=== PATIENT | female | born 1995 | race African-American/Black ===

== ENCOUNTER 2018-01-26 10:56 | Emergency (ER) | payer OTHER ==
[2018-01-26 10:59] VITALS: BP 134/92; PULSE 101; TEMP 98.7; BMI 29.2
[2018-01-26] MEDS ORDERED: KETOROLAC TROMETHAMINE 60 MG/2 ML VIAL ONE (11:41)
[2018-01-26] MEDS ORDERED: KETOROLAC TROMETHAMINE 60 MG/2 ML VIAL IM ONE (11:47)
--- NOTE | 2018-01-26 11:57 | PDOC ---
History of Present Illness - General Chief Complaint: Ear Problem Stated Complaint: EARACHE Time Seen by Provider: 01/26/18 11:34 History Source: Patient Exam Limitations: No Limitations - History of Present Illness Initial Comments: 01/26/18 11:48 Acute onset of severe right ear pain that started this morning at 1 AM. States has been suffering with a mild cold throughout the week and her young daughter was diagnosed with last week. Has been using ibuprofen with minimal resolved. Patient is now here tearful with pain to her right ear and runny nose. Timing/Duration: 24 hours Severity: moderate Associated Symptoms: reports: fever/chills, malaise Past History - Travel Traveled outside of the country in the last 30 days: No - Past Medical History Allergies/Adverse Reactions: Allergies Allergy/AdvReac Type Severity Reaction Status Date / Time No Known Allergies Allergy Verified 01/26/18 10:59 Home Medications: Ambulatory Orders Azithromycin [Zithromax -] 250 mg PO UTDICT #6 tab 01/26/18 COPD: No - Suicide/Smoking/Psychosocial Hx Smoking History: Never smoked Review of Systems - Review of Systems Able to Perform ROS?: Yes Is the patient limited Malay proficient: Yes Constitutional: Yes: Symptoms Reported, See HPI, Fever, Malaise HEENTM: Yes: See HPI, Ear Pain, Nose Congestion. No: Symptoms Reported Respiratory: Yes: Symptoms reported, See HPI *Physical Exam - Vital Signs Last Vital Signs Temp Pulse Resp BP Pulse Ox 98.7 F 101 H 20 134/92 99 01/26/18 10:57 01/26/18 10:57 01/26/18 10:57 01/26/18 10:57 01/26/18 10:57 - Physical Exam General Appearance: Yes: Appropriately Dressed HEENT: positive: Nasal Congestion, Rhinorrhea, Sinus Tenderness, TM Bulging, TM Dull (right TM with severe bulging unable to visualize any landmarks), TM Erythema. negative: TMs Normal Neck: positive: Supple, Lymphadenopathy (R), Lymphadenopathy (L) Respiratory/Chest: positive: Lungs Clear Moderate Sedation - Procedure Monitoring Vital Signs: Procedure Monitoring Vital Signs Temperature 98.7 F 01/26/18 10:57 Pulse Rate 101 H 01/26/18 10:57 Respiratory Rate 20 01/26/18 10:57 Blood Pressure 134/92 01/26/18 10:57 O2 Sat by Pulse Oximetry (%) 99 01/26/18 10:57 *DC/Admit/Observation/Transfer Diagnosis at time of Disposition: Otitis media Qualifiers: Otitis media type: suppurative Chronicity: acute Laterality: right Recurrence: non-recurrent Spontaneous tympanic membrane rupture: without spontaneous rupture Qualified Code(s): H66.001 - Acute suppurative otitis media without spontaneous rupture of ear drum, right ear - Discharge Dispostion Disposition: HOME Condition at time of disposition: Stable Decision to Admit order: No - Referrals - Patient Instructions Printed Discharge Instructions: Middle Ear Infection Additional Instructions: Rest, lots of fluids; water, teas, soups Saltwater girls and steamy showers Hot wet soaks to ear/hot packs may help relieve some pain Continue ibuprofen or Tylenol for pain and fevers Complete all antibiotics as directed followup with private physician / ENT doctor in 2-3 days - Post Discharge Activity
== END 2018-01-26 12:26 | disposition home or self-care (01) ==
LOC: JERFT 10:56
PROC: 3E0233Z Introduction of Anti-inflammatory into Muscle, Percutaneous Approach (ICD-10-PCS; principal; 2018-01-26)
DX: H66.001 Acute suppurative otitis media without spontaneous rupture of ear drum, right ear (principal)
CPT/HCPCS: 99281-25

== ENCOUNTER 2018-06-10 19:03 | Emergency (ER) | payer OTHER ==
[2018-06-10 19:10] VITALS: BP 124/80; PULSE 106; TEMP 98.4; BMI 27.4
[2018-06-10] MEDS ORDERED: DEXAMETHASONE LIQUID 0.5 MG/5 ML 240 ML BULK BOTTLE PO ONE (19:58)
[2018-06-10] MEDS ORDERED: PENICILLIN G BENZATHINE 1,200,000 UNIT/2 ML PFS IM ONE (19:58)
[2018-06-10] MEDS ORDERED: DEXAMETHASONE SOD PHOSPHATE 10 MG/1 ML VIAL ONE (20:05)
[2018-06-10] MEDS ORDERED: PENICILLIN G BENZATHINE 2,400,000 UNIT/4 ML PFS ONE (20:06)
--- NOTE | 2018-06-10 20:07 | PDOC ---
History of Present Illness - General Chief Complaint: Sore Throat Stated Complaint: SORE THROAT Time Seen by Provider: 06/10/18 19:55 - History of Present Illness Initial Comments: 06/10/18 20:03 23-year-old female without comorbidities presents for evaluation of sore throat and fever 2 days. Past History - Past Medical History Allergies/Adverse Reactions: Allergies Allergy/AdvReac Type Severity Reaction Status Date / Time No Known Allergies Allergy Verified 06/10/18 19:11 Home Medications: Ambulatory Orders Azithromycin [Zithromax -] 250 mg PO UTDICT #6 tab 01/26/18 COPD: No - Suicide/Smoking/Psychosocial Hx Smoking History: Never smoked Review of Systems - Review of Systems Constitutional: Yes: Fever HEENTM: Yes: Throat Pain, Difficulty Swallowing *Physical Exam - Vital Signs Last Vital Signs Temp Pulse Resp BP Pulse Ox 98.4 F 106 H 18 124/80 100 06/10/18 19:09 06/10/18 19:09 06/10/18 19:09 06/10/18 19:09 06/10/18 19:09 - Physical Exam Comments: 06/10/18 20:03 HEAD: NC/AT EYES: Conjuntiva clear Ears: Canals and TM's normal NOSE: No d/c THROAT: Moist mucous membrances, oral pharanx erythemic with exudate, uvula midline NECK: Supple without adenopathy CARDIAC: S1 S2 LUNGS: CTA Full and Equal breath sounds ABDOMEN: Soft NT ND MS: Full ROM in all joints without edema NEUROLOGIC: No gross sensory or motor deficits, NVID SKIN: Normal color and temperature no lesions or rashes Medical Decision Making - Medical Decision Making 06/10/18 20:04 I'll treat for strep based on symptoms and history as well as physical examination. *DC/Admit/Observation/Transfer Diagnosis at time of Disposition: Strep pharyngitis - Discharge Dispostion Disposition: HOME Condition at time of disposition: Stable Decision to Admit order: No - Referrals Referrals: Huma Cantu MD [Primary Care Provider] - - Patient Instructions Printed Discharge Instructions: Strep Throat, DI for Strep Throat Additional Instructions: Your given a one-time injection of penicillin and a steroid to drink in the emergency room. He did not require further treatment for strep throat. Tylenol for pain. Avoid anti-inflammatories such as Advil Motrin Aleve and ibuprofen. Warm salt water gargles 5-6 times a day to use your pain over the next few days. Change her toothbrush in 48 hours and follow-up with your primary care physician in one to 2 days for further evaluation and treatment options should your symptoms persist. - Post Discharge Activity
== END 2018-06-10 20:36 | disposition home or self-care (01) ==
LOC: JERFT 19:03
DX: J02.0 Streptococcal pharyngitis (principal)
CPT/HCPCS: 96372; 99281-25

== ENCOUNTER 2019-02-20 11:28 | Emergency (ER) | payer OTHER ==
[2019-02-20 11:37] VITALS: BMI 31.4
[2019-02-20] MEDS ORDERED: IBUPROFEN 600 MG TABLET (FP) PO ONE ×2 (11:58→12:00)
--- NOTE | 2019-02-20 12:06 | PDOC ---
History of Present Illness - General Chief Complaint: Cold Symptoms Stated Complaint: COLD SYMPTOMS Time Seen by Provider: 02/20/19 11:51 History Source: Patient Exam Limitations: No Limitations - History of Present Illness Initial Comments: 02/20/19 12:00 Patient is a 24-year-old female with no past medical history who presents to the ED with fevers, body aches, sore throat, cough and general unwell feeling for the last 2 days. She states her boyfriend was diagnosed with the flu and she feels that she has the same. She has been taking Tylenol and ibuprofen which has not helped much. She does admit to having no appetite. Past History - Past Medical History Allergies/Adverse Reactions: Allergies Allergy/AdvReac Type Severity Reaction Status Date / Time No Known Allergies Allergy Verified 06/10/18 19:11 Home Medications: Ambulatory Orders Azithromycin [Zithromax -] 250 mg PO UTDICT #6 tab 01/26/18 Oseltamivir Phosphate [Tamiflu] 75 mg PO BID #10 capsule 02/20/19 COPD: No - Immunization History Immunization Up to Date: No - Psycho Social/Smoking Cessation Hx Smoking History: Never smoked Have you smoked in the past 12 months: No Information on smoking cessation initiated: No Hx Alcohol Use: No Drug/Substance Use Hx: No Review of Systems - Review of Systems Comments:: 02/20/19 12:01 - Review of Systems Able to Perform ROS?: Yes Constitutional: No: Night Sweats, Weakness; Positive: Fever, Chills, Loss of Appetite HEENTM: No: Eye Pain, Vision changes, Ear Pain, Throat Swelling, Mouth Pain, Difficulty Swallowing; Positive: Throat Pain Respiratory: No: Shortness of Breath, Wheezing, Sputum Production, Positive: Cough Cardiac (ROS): No: Chest Pain, Chest Tightness, Palpitations, Irregular Heart Beat, Edema ABD/GI: No: Nausea, Vomiting, Abdominal Pain, Diarrhea : No Dysuria, No Hematuria, No Frequency, No Urgency Musculoskeletal: No: Muscle Pain, Back Pain, Joint Pain, Muscle Weakness, Neck Pain Integumentary: No: Lesions, Rash Neurological: No: Headache, Numbness, Tingling, Weakness, Speech Difficulties *Physical Exam - Vital Signs Last Vital Signs Temp Pulse Resp BP Pulse Ox 98.7 F 108 H 18 123/78 99 02/20/19 11:34 02/20/19 11:34 02/20/19 11:34 02/20/19 11:34 02/20/19 11:34 - Physical Exam 02/20/19 12:05 - Physical Exam General Appearance: Nourished, Appropriately Dressed, No Distress HEENT: EOMI, Normal Voice, Moderate Pharyngeal Erythema, No Muffled/Hoarse voice , No Tonsillar Exudate, No Tonsillar Erythema, Positive Nasal Congestion, No Rhinorrhea, Hearing Grossly Normal, TMs Normal, Mild TM Bulging b/l, No TM Dullness, No TM Erythema Neck: Supple, No Lymphadenopathy (R), No Lymphadenopathy (L), No Rigidity, No Decreased range of motion Respiratory/Chest: Lungs Clear, Normal Breath Sounds. No Respiratory Distress, No Accessory Muscle Use Cardiovascular: Regular Rhythm, Regular Rate, S1, S2 Gastrointestinal/Abdominal: Normal Bowel Sounds, Soft. Non-tender, No Guarding , No Rebound, No Rigidity Musculoskeletal: Normal Inspection. No Decreased Range of Motion Extremity: Normal Capillary Refill, Normal Inspection Integumentary: Normal Color, Dry. No Rash Neurologic: scalder II-XII NML intact, Fully Oriented, Alert, Normal Mood/Affect, Normal Response ED Treatment Course - ADDITIONAL ORDERS Additional order review: 02/20/19 12:38 Laboratory Tests 02/20/19 02/20/19 11:55 11:55 Influenza A (Rapid) Negative Influenza B (Rapid) Positive A Group A Strep Rapid Pending 02/20/19 12:42 Laboratory Tests 02/20/19 11:55 Group A Strep Rapid Negative Medical Decision Making - Medical Decision Making 02/20/19 12:42 Patient has been made aware that she is influenza B positive. Since her symptoms started 48 hours ago she is a candidate for Tamiflu. We will send the Tamiflu to her pharmacy. She should get plenty of rest and drink plenty of fluids. She should alternate Tylenol and ibuprofen for her symptoms. She should follow-up with her primary doctor within 1 to 2 days for repeat evaluation. Discharge - Discharge Information Problems reviewed: Yes Clinical Impression/Diagnosis: Influenza B Condition: Stable Disposition: HOME - Additional Discharge Information Prescriptions: Oseltamivir Phosphate [Tamiflu] 75 mg PO BID #10 capsule - Follow up/Referral Referrals: Huma Cantu MD [Primary Care Provider] - - Patient Discharge Instructions Patient Printed Discharge Instructions: DI for Influenza -- Adult Additional Instructions: Get plenty of rest and drink plenty of fluids. Take Tylenol and ibuprofen for fevers and body aches. Take the Tamiflu as prescribed but if makes you feel worse such as giving you diarrhea, nausea or vomiting you can stop taking the Tamiflu. You should avoid contact with others as the flu is very contagious. - Post Discharge Activity Work/Back to School Note: Back to Work
[2019-02-20 12:50] VITALS: BP 126/85; PULSE 88; TEMP 98.5
== END 2019-02-20 12:51 | disposition home or self-care (01) ==
LOC: JERFT 11:28
DX: J10.1 Influenza due to other identified influenza virus with other respiratory manifestations (principal)
CPT/HCPCS: 87070; 87804; 87880; 99282-25